=== PATIENT | female | born 1990 | race Caucasian/White ===

== ENCOUNTER 2017-06-13 08:00 | Emergency (ER) | payer MEDICAID, SELFPAY ==
[2017-06-13 08:03] VITALS: BP 130/77; PULSE 108; RESP 16; TEMP 36.6; O2SAT 97; BMI 30.1
--- NOTE | 2017-06-13 08:11 | ED.RN ---
MOTHER REPORTS PT HAS HAD DRUG USE IN PAST. DX BIPOLAR, NOT COMPLIANT ITH MEDS OR SEEING DR. BILL STRANGArturo LATELY. ABOUT 4 MONTHS AGO BOYFRIEND FROM [place]. MOTHER PHONE NUMBER [phone]
--- NOTE | 2017-06-13 08:39 | EKG12_ITS ---
Test Reason : Blood Pressure : / mmHG Vent. Rate : 077 BPM Atrial Rate : 097 BPM P-R Int : 136 ms QRS Dur : 086 ms QT Int : 356 ms P-R-T Axes : 066 048 034 degrees QTc Int : 402 ms Sinus rhythm with marked sinus arrhythmia Otherwise normal ECG Confirmed by EBONY DENSON, ALFREDO ([id number]), magazine editor EVANGELINA BETH ([id number]) on 06/15/2017 1:33:06 PM Referred By: ALBARO Confirmed By:ALFREDO BECK MD
[2017-06-13 09:24] LABS: Absolute Lymphocyte Count 2.59 X10^3/ul (0.83-4.51); Basophil# 0.08 X10^3/uL; Basophil% 1.1 % (0-1); Eosinophil# 0.04 X10^3/uL; Eosinophils% 0.5 % (0-5); Hematocrit 37.6 % (37-47); Lymphocyte # 2.59 X10^3/ul (4.0); Lymphocyte % 35.3 % (19-41); Mean Corp Hgb Conc 34.6 g/gl (32-36); Mean Corpuscular Hgb 29.1 pg (27.0-32.0); Mean Corpuscular Volume 84.3 fL (81-99); Mean Platelet Vol. 10.8 fl (6.2-12.0); Monocyte# 0.62 X10^3/uL; Monocyte% 8.5 % (0-10); Neutrophil # 3.98 X10^3/uL (2.7-7.7); Neutrophil % 54.3 % (47-70); Platelet Count 248 K/mm3 (150-450); RBC Distribution Width CV 13.5 % (11.6-14.6); RBC Distribution Width SD 40.9 fl (35.1-43.9); Red Blood Count 4.46 M/mm3 (4.2-5.4); White Blood Count 7.3 K/mm3 (4.4-11.0)
[2017-06-13 09:25] LABS: POSITIVE COUNT NO; POSITIVE DIFFERENTIAL NO; POSITIVE MORPHOLOGY NO
[2017-06-13 09:37] LABS: Anion Gap 6 (5-15); BUN 13 mg/dL (7-18); BUN/Creat Ratio 15.5 RATIO (10-20); Calcium,Total 9.4 mg/dL (8.5-10.1); Chloride 107 mmol/L (98-107); Creatinine, Serum 0.84 mg/dL (0.55-1.02); EST Glomerular Filtration Rate 88 mL/min (>60); Est Glom Filt Rate - Afr Amer 106 mL/min (>60); Estimated Creatinine Clearance 95.84 ml/min; Glucose 102 mg/dL (74-106); Potassium 3.9 mmol/L (3.5-5.1); Sodium Level 141 mmol/L (136-145)
[2017-06-13 09:47] LABS: Alcohol, Blood (Medical)-Serum < 3.0 mg/dL
[2017-06-13 09:53] LABS: Amphetamine Urine VISTA NEGATIVE (<1000 ng/mL); Barbiturate Urine VISTA NEGATIVE (< 200 ng/mL); Benzodiazepine Urine VISTA NEGATIVE (< 200 ng/mL); Cocaine Urine VISTA NEGATIVE (< 300 ng/mL); Ecstacy Urine VISTA NEGATIVE (< 500 ng/mL); Methadone Urine VISTA NEGATIVE (< 300 ng/mL); PCP Urine VISTA NEGATIVE (< 25 ng/mL); THC Urine VISTA POSITIVE (< 50 ng/mL); Vista UDS pH Range 6
--- NOTE | 2017-06-13 10:10 | ED.RN ---
[facility] ALL COUNSELORS WILL BE TIED UP FOR AWHILE
[2017-06-13 10:49] LABS: Pregnancy, Serum, hCG Quali. NEGATIVE Negative (0-9 Nonpreg)
[2017-06-13 11:19] VITALS: BP 129/77; PULSE 61; RESP 15; O2SAT 98
[2017-06-13 12:18] VITALS: BP 129/84; PULSE 72; RESP 15; O2SAT 98
[2017-06-13] MEDS: LORazepam 1 MG Tablet 2 MG PO (12:49)
[2017-06-13 13:53] VITALS: BP 119/74; PULSE 92; RESP 17; O2SAT 98
--- NOTE | 2017-06-13 15:38 | ED.DCSUM_ITS ---
- ER Visit Summary Date of Service: 06/13/17 Chief Complaint: Cannot sleep frustrated History of Present Illness: The patient is a 26 F who is difficult to obtain history from. She does have a history of bipolar disorder and was fully treated with Latuda. She denies suicidal or homicidal ideation. In speaking the mother she was previously abusing drugs and homeless up until January when her boyfriend overdosed and . She has been back at home with the mother. Mother notes that she has been behaving very oddly. She has not been eating or sleeping. She was cleaning the bathroom at 3 AM and had all of the drawers open and all of the hair clips in her hair. She has also been saying that she has visions. Physical Examination: Afebrile vitals are notable for heart rate 108 Patient has irritable and agitated Moist mucous members Heart regular rhythm tachycardia Lungs are clear Abdomen soft Alert and oriented No suicidal or homicidal ideation Test Results: EKG shows sinus rhythm at a rate of 77. CBC BMP unremarkable. Drug screen positive for cannabinoids. Alcohol normal. negative. Emergency Department Course and Treatment: Patient appears to be in a manic state. Patient was evaluated by the counseling center. Patient will be transferred to a psychiatric facility. Treatment Plan: [] Disposition: Transfer Impression: Clair psychosis This note was generated with [employer] dictation software. It may contain incorrect words, spelling, and punctuation that were not noted in review of the chart prior to signing ED Disposition - Plan for ED Patient: Chief Complaint: Mental Health Referrals: Care Physician,No Primary [Primary Care Provider] -
[2017-06-13 16:22] VITALS: BP 119/83; PULSE 113; RESP 17; O2SAT 98
== END 2017-06-13 16:53 ==
PROVIDERS: Emergency Provider Emergency Medicine
DX: F31.9 Bipolar disorder, unspecified (principal); F29 Unspecified psychosis not due to a substance or known physiological condition; R45.4 Irritability and anger; R45.1 Restlessness and agitation; Z79.899 Other long term (current) drug therapy
CPT/HCPCS: 80048; 80307; 80320; 84703; 85025; 93005; 99283; G0480